=== PATIENT | male | born 1980 | race Caucasian/White ===

== ENCOUNTER 2017-06-21 15:49 | Emergency (ER) | payer OTHER ==
[~2017-06-21] VITALS: Ht 182.9 cm; Wt 92.2 kg
[2017-06-21 18:20] VITALS: BP 147/88
== END 2017-06-21 18:20 | disposition home or self-care (01) ==
LOC: ED 15:49
DX: J11.1 Influenza due to unidentified influenza virus with other respiratory manifestations (principal)
CPT/HCPCS: 87804; Q0092